=== PATIENT | female | born 1965 | race Caucasian/White ===

== ENCOUNTER → 2024-03-29 08:39 | Outpatient (REF) | payer BC, SELFPAY | LOC: RCS 08:39 | PROVIDERS: ATTENDING PHYSICIAN Internal Medicine; FAMILY PHYSICIAN Family Medicine | DX: R00.2 Palpitations (principal) | CPT/HCPCS: 93225; 93226 ==

== ENCOUNTER → 2024-04-12 09:12 | Outpatient (REF) | payer BC, SELFPAY | LOC: HWRCS 09:12 | PROVIDERS: ATTENDING PHYSICIAN Internal Medicine; FAMILY PHYSICIAN Family Medicine | DX: R00.2 Palpitations (principal) | CPT/HCPCS: 93306 ==